=== PATIENT | male | born 1960 | race Hispanic/Latino ===

== ENCOUNTER 2018-07-02 11:28 | Observation (INO) | payer BC ==
[2018-07-01 14:23] LABS: BASOPHILS % 0.3 % (0.0-1.0); EOSINOPHILS # (AUTO) 0.1 (0.0-0.4); EOSINOPHILS % 1.9 % (0.0-6.0); HEMATOCRIT 38.7 % (38.2-49.6); HEMOGLOBIN 13.4 g/dL (14.0-18.0); LYMPHOCYTES # (AUTO) 2.1 (1.0-3.2); LYMPHOCYTES % 33.1 % (18.0-39.1); MEAN CORPUSCULAR HEMOGLOBIN 30.3 pg (28-32); MEAN CORPUSCULAR HGB CONC 34.6 g/dL (31-35); MEAN CORPUSCULAR VOLUME 87.6 fL (81-99); MONOCYTES # (AUTO) 0.5 (0.2-0.8); MONOCYTES % 7.7 % (4.4-11.3); NEUTROPHILS # (AUTO) 3.6 (2.1-6.9); NEUTROPHILS % 56.7 % (38.7-80.0); PLATELET COUNT 326 x10e3/uL (140-360); RED BLOOD COUNT 4.42 x10e6/uL (4.3-5.7); RED CELL DISTRIBUTION WIDTH 12.1 % (11.7-14.4)
[2018-07-01 14:34] LABS: INR 0.91; PROTHROMBIN TIME 13.1 seconds (11.9-14.5)
[2018-07-01 14:44] LABS: ALANINE AMINOTRANSFERASE 24 IU/L (0-55); ALBUMIN 3.8 g/dL (3.5-5.0); ALBUMIN/GLOBULIN RATIO 1.4 (0.8-2.0); ALKALINE PHOSPHATASE 80 IU/L (40-150); BLOOD UREA NITROGEN 18 mg/dL (7-26); BUN/CREATININE RATIO 18 (6-25); CALCIUM 9.3 mg/dL (8.4-10.2); CARBON DIOXIDE 25 mmol/L (22-29); CHLORIDE 102 mmol/L (98-107); CREATININE, SERUM 0.98 mg/dL (0.72-1.25); EST GLOMERULAR FILTRATION RATE > 60 ML/MIN (60-); GLUCOSE 196 mg/dL (74-118); SODIUM 135 mmol/L (136-145)
[~2018-07-02] VITALS: Ht 167.6 cm; Wt 89.8 kg
[2018-07-02] VITALS (7 sets, daily range): BP systolic 156–166; BP diastolic 70–100
[~2018-07-02 11:28] MED LIST: ASPIR 8181 MG PO; LISINOPRIL10 MG PO; METFORMIN HCL500 MG PO
[2018-07-02] MEDS ORDERED: VERAPAMIL HCL 2.5 MG/ML 2 ML VIAL ONE (11:42)
[2018-07-02] MEDS ORDERED: HEPARIN SOD (PORCINE) 1000 UNIT/ML 30ML ONE (11:42)
[2018-07-02] MEDS ORDERED: FENTANYL CITRATE/PF 100MCG/2 ML INJ ONE (11:43)
[2018-07-02] MEDS ORDERED: HEPARIN SOD/SOD CHLORIDE 2,000 ML ONE (11:43)
[2018-07-02] MEDS ORDERED: MIDAZOLAM HCL 2 MG/2 ML VIAL ONE (11:43)
[2018-07-02] MEDS ORDERED: SODIUM CHLORIDE 0.9% 1000ML 1,000 ML ONE (11:44)
[2018-07-02] MEDS ORDERED: NITROGLYCERIN/D5W 200 MCG/ML 250 ML ONE (11:44)
[2018-07-02] MEDS ORDERED: IOPAMIDOL 370 MG/ML 200 ML INFUS..BTL INJ ONE ×2 (11:44→12:46)
[2018-07-02] MEDS ORDERED: LIDOCAINE HCL 1% LOCAL INJ 20 ML VIAL ONE ×2 (11:54→12:58)
--- NOTE | 2018-07-02 13:17 | NUR ---
Report provided to Juliet CHOU, review of procedural findings and medications given. Patient drowsy, easily aroused. maintains airway and room air saturations of 96-98%. No gross issues of pressure, pain, pallor or dysrhythmia. IV site patent with NS 0.9% at 30ml/hr by dial-flow. patient hemodynamically stable with hemostasis. right groin dressing CDI w/o s/s of bleeding. TR band to right wrist w/ 14ml /bladder patient transferred to [facility] max assist w/o incident. Overall skin integrity remains intact. transported to [facility] holding - [facility] procedure: Diagnostic [facility] Sheath puller: TR Band R Wrist / Angioseal Right femoral Meds Given Intra-Procedure Sedatives Versed - 2 mg Fentanyl - 50 mcg IA Radial Heparin - 3000 Units Verapamil - 2.5mg Nitro - 200mcg Fluids Input - 100ml Output - none Contrast Isovue - 120 ml
--- NOTE | 2018-07-02 14:15 | NUR ---
1415pm received pt from Addison Yip. [facility] Dr Saavedra. Significant CVD requiring Surgical assessment ,higher level care. Bed ordered by House supv. Robi Yip. Hemodynamic stable. Monitor NSR. 14cc in Rt tr band with hand splint on and Rt groin vascade site w/o bleeding or hematoma on either site. bilateral PPx4 PD/DP. Son Elvin at [facility]. cell- [phone]. Requested [facility]. Chart copied.Awaiting bed disposition. MOT started by housekeeping and laundry team leader. Jayce Son transport per ambulance to transfer. Pt is back to baseline orientation. PEERLA. Respirations regular at 98% on room air. Abdomen soft and non distend denies necessity to defecate or urinate. Iv infusing 50cchr for additional total 250cchr. No signs of s/s infiltration. Educated pt necessity to hold rt arm still and rt leg straight. ds/rn
--- NOTE | 2018-07-02 15:30 | NUR ---
1530pm Transferred to [facility] per ambulance. Dr [facility] service. Ambulance service given hand off.VS stable. Sinus Rhythm Approximately 100cchr left for 250 saline to be infused. Informed ambulance service to give CD and chart copy to nurse that received report. Denies CP or SOB. Valuables sent with patient. secured to transport stretcher. Escort to ambulance bay with [facility] hospital staff. MOT signed by House Supcynthia. Robi CHOU. trent/rn
--- OUTSIDE RECORDS SUMMARY | 2018-07-02 16:45 | XMS REPORT | Clinical Summary ---
Author Author [facility] Address Unknown Phone Unavailable Care Team Providers Care Integrated Logistics Support Manager Name Role Phone PCP Unavailable Allergies Not on File Medications Not on file Active Problems Not on file Encounters Care Team Description Date Type Specialty Ct [facility] MD 07/02/2018 Hospital Encounter after 07/01/2017 Social History Date Tobacco Use Types Packs/Day Years Used Never Assessed Sex Assigned at Date Recorded Not on file Industry Job Start Date Occupation Not on file Not on file Not on file Travel End Travel History Travel Start No recent travel history available. Last Filed Vital Signs Not on file Plan of Treatment Care Team Description Date Type Specialty Ct [facility] MD [phone] [place] [address] [phone] 07/05/[address] [facility] MD [id number] [place] [address] [phone] BYPASS,[facility]TO CORONARY BECKY/SVG 07/05/2018 Surgery Results Not on fileafter 07/01/2017
--- NOTE | 2018-07-07 20:16 | Operative Report ---
DATE OF PROCEDURE: SURGEON: George Saavedra DO PROCEDURES PERFORMED: 1. Conscious sedation, 30 minutes. 2. Selective coronary angiography x2. 3. Left heart catheterization. 4. Left ventriculography. PREPROCEDURE DIAGNOSIS: Systolic congestive heart failure. POSTPROCEDURE DIAGNOSIS: Systolic congestive heart failure. ESTIMATED BLOOD LOSS: Less than 20 mL. SPECIMENS REMOVED: None. PROCEDURE IN DETAIL: After informed consent was obtained, the patient was brought to the cardiac catheterization laboratory in a fasting and nonsedated state. Bilateral groins were prepped and draped in the usual sterile fashion. His right wrist was prepped and draped in the usual sterile fashion. Lidocaine 2% was infiltrated over the right anterior wrist for local anesthesia. Using a micropuncture needle, the right radial artery was accessed via the modified Seldinger technique and a 6-[place] Slender sheath was placed. Next, a diagnostic coronary angiography was performed using a JL3.5 and JR4 catheter. Left ventriculography was performed using a modified pigtail catheter. The patient tolerated the procedure well. No immediate complications, transferred back to his room in stable condition. PROCEDURE FINDINGS: 1. Left main coronary is patent without significant coronary artery disease. 2. Left anterior descending coronary artery has a short proximal section with mild luminal irregularities. After the takeoff the first diagonal, there is a long severe 70%-80% stenotic area. The first diagonal branch also is mildly calcified with moderate disease. 3. Left circumflex coronary artery provides two small caliber obtuse marginal vessels. 4. The right coronary artery is a large dominant vessel with large posterolateral branches and the posterior descending coronary artery. The mid to distal RCA has a long, severe 80%-90% ulcerated plaque. 5. Left ventricular end-diastolic pressure was 12 mmHg with no aortic valve gradient upon pullback. 6. Estimated left ventricular ejection fraction is 35%-40% with inferior hypokinesis. RECOMMENDATIONS: The patient was found to have multivessel coronary artery disease and systolic heart failure with a history of diabetes mellitus. We will refer the patient for coronary artery bypass surgery. George Saavedra DO BM/MODL /[id number]
== END 2018-07-03 07:59 | disposition short-term general hospital (02) ==
LOC: CATH LAB 11:28 → CATH LAB V 13:46
PROVIDERS: ADMIT Internal Medicine Cardiovascular Disease; ATTEND Internal Medicine Cardiovascular Disease
DX: I11.0 Hypertensive heart disease with heart failure (principal); Z01.812 Encounter for preprocedural laboratory examination; I50.20 Unspecified systolic (congestive) heart failure; E11.9 Type 2 diabetes mellitus without complications; E66.09 Other obesity due to excess calories; Z68.32 Body mass index [BMI] 32.0-32.9, adult; I49.3 Ventricular premature depolarization; I25.10 Atherosclerotic heart disease of native coronary artery without angina pectoris; Z79.82 Long term (current) use of aspirin; Z79.84 Long term (current) use of oral hypoglycemic drugs
CPT/HCPCS: 36415; 80053; 85025; 85610; 93458; C1769 ×2; C1887; G0378 ×2; J1644; J2001; J2250; J7030; Q9967

== ENCOUNTER 2021-01-28 21:20 | Inpatient (IN) | payer SELFPAY ==
[~2021-01-28] VITALS: Ht 167.6 cm; Wt 91.6 kg
[2021-01-28] MEDS ORDERED: SODIUM CHLORIDE 0.9% 1000ML 1,000 ML IV ONE (21:45)
[2021-01-28 22:00] LABS: BASOPHILS % 0.4 % (0.0-1.0); EOSINOPHILS # (AUTO) 0.2 (0.0-0.4); EOSINOPHILS % 2.9 % (0.0-6.0); HEMATOCRIT 40.6 % (38.2-49.6); HEMOGLOBIN 13.9 g/dL (14.0-18.0); LYMPHOCYTES # (AUTO) 2.5 (1.0-3.2); LYMPHOCYTES % 31.8 % (18.0-39.1); MEAN CORPUSCULAR HGB CONC 34.2 g/dL (31-35); MEAN CORPUSCULAR VOLUME 87.5 fL (81-99); MONOCYTES # (AUTO) 0.8 (0.2-0.8); MONOCYTES % 10.3 % (4.4-11.3); NEUTROPHILS # (AUTO) 4.2 (2.1-6.9); NEUTROPHILS % 53.4 % (38.7-80.0); PLATELET COUNT 297 x10e3/uL (140-360); RED BLOOD COUNT 4.64 x10e6/uL (4.3-5.7); RED CELL DISTRIBUTION WIDTH 11.9 % (11.7-14.4)
[2021-01-28 22:08] LABS: PROTHROMBIN TIME 13.4 seconds (11.9-14.5)
[2021-01-28 22:09] LABS: PARTIAL THROMBOPLASTIN TIME 32.2 seconds (23.8-35.5)
[2021-01-28 22:16] LABS: ALBUMIN/GLOBULIN RATIO 1.1 (0.8-2.0); ANION GAP 14.8 mmol/L (8-16); CALCIUM 9.4 mg/dL (8.4-10.2); CREATININE, SERUM 1.36 mg/dL (0.72-1.25); POTASSIUM 3.8 mmol/L (3.5-5.1)
[2021-01-29] VITALS (8 sets, daily range): BP systolic 156–195; BP diastolic 84–101
[2021-01-29] MEDS ORDERED: SODIUM CHLORIDE 0.9% 1000ML 1,000 ML IV SCH (01:00)
[2021-01-29] MEDS ORDERED: DEXTROSE 50% SYRINGE 50 ML IV PRN (01:00)
[2021-01-29] MEDS ORDERED: IOPAMIDOL 370 MG/ML 200 ML INFUS..BTL INJ ONE (01:29)
[2021-01-29] MEDS ORDERED: SODIUM CHLORIDE 0.9% 50ML 50 ML ONE (01:29)
[2021-01-29] MEDS ORDERED: METOPROLOL SUCC25 MG PO (04:09)
[2021-01-29] MEDS ORDERED: ATORVASTATIN CA10 MG PO (04:09)
[2021-01-29] MEDS ORDERED: PNEUMOCOCCAL VACCINE POLYVALENT 23 MCG/0.5 ML VIAL IM SCH (04:22)
[2021-01-29 06:56] LABS: HEMATOCRIT 35.4 % (38.2-49.6); HEMOGLOBIN 11.9 g/dL (14.0-18.0)
[2021-01-29] MEDS: INSULIN REGULAR, HUMAN 100 UNIT/1 ML SQ SCH ×4 (08:00→21:14)
[2021-01-29] MEDS: ASPIRIN 81 MG CHEW TAB PO SCH (08:31)
[2021-01-29] MEDS: METOPROLOL SUCCINATE 25 MG TAB XL PO SCH (08:32)
[2021-01-29] MEDS: LISINOPRIL 10 MG TAB PO SCH (08:32)
[2021-01-29 12:20] LABS: HEMATOCRIT 39.1 % (38.2-49.6); HEMOGLOBIN 13.2 g/dL (14.0-18.0)
[2021-01-29 17:55] LABS: HEMATOCRIT 38.1 % (38.2-49.6); HEMOGLOBIN 12.8 g/dL (14.0-18.0)
[2021-01-29] MEDS: ATORVASTATIN 10 MG TAB PO SCH (20:36)
[2021-01-29] MEDS ORDERED: BISACODYL 5 MG TAB EC PO ONE (23:15)
[2021-01-30] VITALS (9 sets, daily range): BP systolic 117–164; BP diastolic 71–89
[2021-01-30] MEDS ORDERED: BISACODYL 5 MG TAB EC PO ONE
[2021-01-30] MEDS ORDERED: CITRATE OF MAGNESIA 300ML BOTTLE PO ONE ×3 (05:00→23:45)
[2021-01-30 05:40] LABS: BASOPHILS % 0.2 % (0.0-1.0); EOSINOPHILS # (AUTO) 0.3 (0.0-0.4); EOSINOPHILS % 3.2 % (0.0-6.0); HEMATOCRIT 42.6 % (38.2-49.6); HEMOGLOBIN 14.7 g/dL (14.0-18.0); LYMPHOCYTES # (AUTO) 2.3 (1.0-3.2); LYMPHOCYTES % 25.3 % (18.0-39.1); MEAN CORPUSCULAR HEMOGLOBIN 30.4 pg (28-32); MEAN CORPUSCULAR HGB CONC 34.5 g/dL (31-35); MEAN CORPUSCULAR VOLUME 88.2 fL (81-99); MONOCYTES # (AUTO) 0.8 (0.2-0.8); MONOCYTES % 8.6 % (4.4-11.3); NEUTROPHILS # (AUTO) 5.7 (2.1-6.9); NEUTROPHILS % 61.9 % (38.7-80.0); PLATELET COUNT 328 x10e3/uL (140-360); RED BLOOD COUNT 4.83 x10e6/uL (4.3-5.7)
[2021-01-30 06:05] LABS: CALCIUM 9.9 mg/dL (8.4-10.2); CREATININE, SERUM 0.97 mg/dL (0.72-1.25)
[2021-01-30] MEDS: INSULIN REGULAR, HUMAN 100 UNIT/1 ML SQ SCH ×4 (10:13→21:50)
[2021-01-30 12:28] LABS: HEMATOCRIT 39.3 % (38.2-49.6); HEMOGLOBIN 13.3 g/dL (14.0-18.0)
[2021-01-30] MEDS: ASPIRIN 81 MG CHEW TAB PO SCH (16:26)
[2021-01-30] MEDS: METOPROLOL SUCCINATE 25 MG TAB XL PO SCH (16:27)
[2021-01-30] MEDS: LISINOPRIL 10 MG TAB PO SCH (16:27)
[2021-01-30] MEDS ORDERED: ATORVASTATIN 20 MG TAB ONE (20:44)
[2021-01-30] MEDS: ATORVASTATIN 10 MG TAB PO SCH (21:49)
[2021-01-31 05:13] VITALS: BP 123/71
[2021-01-31 09:48] VITALS: BP 133/79
[2021-01-31] MEDS: ASPIRIN 81 MG CHEW TAB PO SCH (10:31)
[2021-01-31] MEDS: LISINOPRIL 10 MG TAB PO SCH (10:31)
[2021-01-31] MEDS: METOPROLOL SUCCINATE 25 MG TAB XL PO SCH (10:32)
[2021-01-31] MEDS: INSULIN REGULAR, HUMAN 100 UNIT/1 ML SQ SCH ×2 (10:33→12:23)
[2021-01-31] MEDS ORDERED: PNEUMOCOCCAL VACCINE POLYVALENT 23 MCG/0.5 ML VIAL IM SCH (12:00)
[2021-01-31 12:06] VITALS: BP 128/80
[2021-01-31] MEDS ORDERED: LIDOCAINE HCL 2% LOCAL INJ 5 ML SDV VIAL INJ ONE (12:25)
[2021-01-31] MEDS ORDERED: PROPOFOL IV EMULSION 10 MG/ML 20 ML VIAL ONE (12:25)
[2021-01-31] MEDS ORDERED: HYOSCYAMINE SULFATE 0.5 MG/ML INJ ONE (12:25)
[2021-01-31] MEDS ORDERED: GLUCAGON FOR INJ 1 MG VIAL ONE (12:25)
[2021-01-31] MEDS ORDERED: PNEUMOCOCCAL VACCINE POLYVALENT 23 MCG/0.5 ML VIAL IM ONE (14:00)
== END 2021-01-31 13:07 | disposition home or self-care (01) | DRG 374 ==
LOC: ER 21:57 → EDBD 01-29 01:03 → ERHOLD 01-29 01:03 → MED/SURG3 01-29 02:55 → UNDODISIN 01-30 15:03
PROC: 0DBH8ZZ Excision of Cecum, Via Natural or Artificial Opening Endoscopic (ICD-10-PCS; principal; 2021-01-31 07:00)
PROC: 0DBP8ZX Excision of Rectum, Via Natural or Artificial Opening Endoscopic, Diagnostic (ICD-10-PCS; 2021-01-31 07:00)
DX: C19 Malignant neoplasm of rectosigmoid junction (principal); K57.31 Diverticulosis of large intestine without perforation or abscess with bleeding; I25.10 Atherosclerotic heart disease of native coronary artery without angina pectoris; E11.9 Type 2 diabetes mellitus without complications; K64.8 Other hemorrhoids; I10 Essential (primary) hypertension; E87.5 Hyperkalemia; Z95.1 Presence of aortocoronary bypass graft; Z20.822 Contact with and (suspected) exposure to COVID-19
CPT/HCPCS: 36415; 45378; 45380; 45385; 74174; 80048; 80053; 82948; 85014; 85018; 85025; 85610; 85730; 86850; 86900; 88305; 88331; 88342; 90732; 99284; J1610; J1817; J1980; J2001; J7030; Q9967; U0002